=== PATIENT | female | born 1980 | race Caucasian/White ===

== ENCOUNTER 2020-09-15 16:46 | Emergency (ER) | payer BC, SELFPAY ==
[2020-09-15 16:55] VITALS: BP 133/74; PULSE 94; RESP 20; TEMP 38.1; O2SAT 100
--- NOTE | 2020-09-15 16:59 | ED.GENADULT ---
HPI - General Adult General Chief complaint: Upper Respiratory Infection Stated complaint: sore throat diahrrea nausea Time Seen by Provider: 09/15/20 16:59 Source: patient and RN notes reviewed History of Present Illness HPI narrative: Patient is a 40-year-old female who presents the urgent care with complaints of sore throat, nausea, vomiting, diarrhea. Patient states that the nausea, vomiting and diarrhea lasted 24 hours and started on 06 September, resolving on the . Patient states that on the she developed a severe sore throat, sinus drainage and congestion. Patient states she is also been very fatigued and has had a fever intermittently. Patient states that she has been using cough drops for a mild nonproductive cough. Denies of any shortness of breath or chest pain. States that she works for [employer] and has had a lot of Covid contact. States that you are able to test her self nightly while on the job but she has not tested herself because she refuses to swab her own nose . Patient states that she also took vacation during and did not want use any more of her time off. Patient appears fatigued but otherwise no other acute distress noted. Patient aware of the plan of care. Some parts of this dictation were generated by voice recognition software and may contain typographical and/or grammatical inaccuracies. Related Data Home Medications Medication Instructions Recorded Confirmed atorvastatin 20 mg PO DAILY 09/15/20 09/15/20 Allergies Allergy/AdvReac Type Severity Reaction Status Date / Time Penicillins Allergy Mild Rash Verified 09/15/20 17:10 ropinirole Allergy Mild VOMITING Verified 09/15/20 16:50 erythromycin base Allergy Unknown HIVES Verified 09/15/20 16:50 amoxicillin Allergy Rash Verified 09/15/20 17:10 prochlorperazine AdvReac Intermediate Other Verified 09/15/20 17:10 Review of Systems Review of Systems: Narrative: CONSTITUTIONAL: Reports of fever, chills, fatigue EYES: Denies visual changes, redness, or discharge. ENT: Reports of nasal congestion, postnasal drainage, sore throat CARDIOVASCULAR: Denies chest pain, palpitations, or edema. RESPIRATORY: Reports a mild nonproductive cough without dyspnea GASTROINTESTINAL: Denies abdominal pain, nausea, vomiting, or diarrhea. GENITOURINARY: Denies dysuria or hematuria. SKIN: Denies rash or itching. MUSCULOSKELETAL: Denies back pain, joint pain, or myalgia. NEUROLOGIC: Denies headache, numbness, or weakness. All other systems reviewed are negative, except as documented in HPI. PMFSH Comments At the time of my signature, I reviewed and agree with the nursing past medical, surgical, social, and family history. There is no relevant family history pertinent to the patient complaint. Exam Narrative: Exam Narrative: GENERAL: This is a well-nourished, well-developed patient, appears slightly fatigued HEAD: normocephalic, atraumatic. EYES: PERRL. Sclera clear/white. Vision is grossly intact. EARS: External ears normal, auditory canals clear and without drainage, TMs normal without perforation. Hearing grossly intact. NOSE: External nose normal with no obvious nasal discharge, nares without redness, no rhinorrhea. THROAT: Mucous membranes moist, posterior pharynx clear. Mild postnasal drainage NECK: Neck supple CARDIOVASCULAR: Regular rate and rhythm without murmurs, gallops, or rubs. RESPIRATORY: Clear to auscultation. Breath sounds equal bilaterally. No wheezes, rales, or rhonchi. SKIN: warm, intact with no suspicious lesions or rash, good texture and turgor. NEURO: awake, alert, and oriented to person, place and time. There were no obvious focal neurologic abnormalities. EXTREMITIES: No clubbing, cyanosis, or edema. Course Vital Signs Vital signs: Vital Signs Temperature 100.6 F H 09/15/20 16:55 Pulse Rate 94 09/15/20 16:55 Respiratory Rate 20 09/15/20 16:55 Blood Pressure 133/74 09/15/20 16:55 Pulse Oximetry 100 09/15/20 1
== END 2020-09-15 17:35 | disposition home or self-care (01) ==
PROVIDERS: Emergency Provider Nurse Practitioner Family
DX: Z20.828 Contact with and (suspected) exposure to other viral communicable diseases (principal); J02.9 Acute pharyngitis, unspecified; R53.83 Other fatigue; G25.81 Restless legs syndrome; E78.00 Pure hypercholesterolemia, unspecified
CPT/HCPCS: 87081; 87804; 87880; 99213; G0463